=== PATIENT | female | born 1955 ===

== ENCOUNTER 2017-03-28 16:59 | Emergency (ER) | payer BC ==
[2017-03-28 19:25] VITALS: BP 100/56
--- NOTE | 2017-03-28 19:44 | UC ---
Complaint Female HPI - HPI Summary HPI Summary: 61 year old female with Urinary complaint. frequent urination, slight discomfort with urination, some cramping, strong urine odor, low back pain. no fever. no abdominal pain otherwise. no n/v/d. Has had diverticulitis but does not feel like that at this time. Has had some back pain for a few days and taken motrin with relief. No dysuria . [ End ] - History Of Current Complaint Chief Complaint: [facility]CGU Stated Complaint: URINARY Time Seen by Provider: 03/28/17 18:53 Hx Obtained From: Patient, Family/Interior Mechanic Onset/Duration: Gradual Onset Severity Initially: Moderate Associated Signs And Symptoms: Positive: Back Pain. Negative: Fever - Allergies/Home Medications Allergies/Adverse Reactions: Allergies Allergy/AdvReac Type Severity Reaction Status Date / Time Codeine Allergy Anxiety Verified 03/28/17 19:08 Home Medications: Home Medications Famotidine TAB* [Pepcid 20 MG TAB*] 20 mg PO BID 03/28/17 [History Confirmed ] PMH/Surg Hx/FS Hx/Imm Hx Previously Healthy: Yes - Surgical History Surgical History: Yes Surgery Procedure, Year, and Place: C-SECT - Family History Known Family History: Negative: Respiratory Disease - Social History Alcohol Use: Rare Substance Use Type: None Smoking Status (MU): Former Smoker Type: Cigarettes Amount Used/How Often: 1/2 ppd Length of Time of Smoking/Using Tobacco: 20 + yrs Have You Smoked in the Last Year: No When Did the Patient Quit Smoking/Using Tobacco: 17 years ago Review of Systems Gastrointestinal: Other - lower abdominal cramping Genitourinary: Frequency Musculoskeletal: Arthralgia - low back pain Is Patient Immunocompromised?: No All Other Systems Reviewed And Are Negative: Yes Physical Exam Triage Information Reviewed: Yes Appearance: Well-Appearing, No Pain Distress, Well-Nourished Vital Signs: Initial Vital Signs Temp 99.5 F 03/28/17 19:04 Pulse 75 03/28/17 19:04 Resp 15 03/28/17 19:04 BP 100/56 03/28/17 19:04 Pulse Ox 98 03/28/17 19:04 Vital Signs Reviewed: Yes Eye Exam: Normal ENT Exam: Normal Neck exam: Normal Neck: Positive: 1 Respiratory Exam: Normal Cardiovascular Exam: Normal Abdominal Exam: Normal Abdomen Description: Positive: Nontender, No Organomegaly, Soft. Negative: Bruit, CVA Tenderness (R), CVA Tenderness (L), Distended, Guarding Bowel Sounds: Positive: Present Musculoskeletal Exam: Normal Musculoskeletal: Positive: Strength Intact, ROM Intact, Other: - b/l paraspinal tenderness to palpation L3-5. no sp tenderness. no step off. Neurological Exam: Normal Psychological Exam: Normal Skin Exam: Normal Complaint Female Dx - Course Course Of Treatment: nEG u/a. No UTI present. f/u with hematuria with PCP. back pain more musculoskeletal at this time. no diverticulitis Sx at this time and will monitor for such. she and hisband aware and agree with plan - Differential Dx/Diagnosis Provider Diagnoses: hematuria Discharge - Discharge Plan Condition: Good Disposition: HOME Patient Education Materials: Hematuria (ED) Referrals: Adal Montiel PA [Primary Care Provider] - 4 Days
== END 2017-03-28 20:02 | disposition home or self-care (01) ==
LOC: UCCORT 16:59
DX: R31.9 Hematuria, unspecified (principal); Z88.5 Allergy status to narcotic agent; Z87.891 Personal history of nicotine dependence
CPT/HCPCS: 81003; 99212; G0463